=== PATIENT | female | born 2005 | race Caucasian/White ===

== ENCOUNTER 2025-01-13 22:17 | Emergency (ER) | payer OTHER, SELFPAY ==
[2025-01-13 22:22] VITALS: BP 118/79
[2025-01-13 23:36] VITALS: BMI 18.8
--- NOTE | 2025-01-13 23:57 | ED.GENMED ---
History of Present Illness
General
Chief Complaint: Anal/Rectal Problem
Source: patient and family
Exam Limitations: developmental stage
Time Seen by Provider: 01/13/25 23:30
Nursing documentation reviewed up to this point in time: agreed with
History of Present Illness
History of Present Illness:
Patient is a 19-year-old female with developmental delay issues presents for evaluation. father reports patient has had intermittent episodes of constipation issues for the past several weeks. She does report she forces stool at times. She was
using MiraLAX for 4 days however became panicky because it was not working well and stopped using it. She is not using a stool softener. Father reports patient does tend to wipe a lot. When she was wiping she noticed a small amount of bright red
blood on the toilet paper. Father reports stool however was brown in color
she denies any nausea vomiting / abdominal pain and is eating well.
Patient reports where she had a large bowel movement prior to arrival.
Phy Exam
General Physical Exam
General Presentation: no apparent distress
General age: appears stated age
General Skin: warm and dry
General Habitus: normal
General Mental: alert
General Hydration: appears well hydrated
Gastrointestinal Exam
Gastrointestinal Exam: normal bowel sounds, non tender, soft and other (Rectum appears irritated very small abrasion around rectum )
Neurological Exam
Neurological Exam: alert and oriented x3
Musculoskeletal Exam
Musculoskeletal Exam: full ROM
Skin Exam
Skin Exam: normal color and warm/dry
Course
Vital Signs
Initial and Last Documented VS:
Initial Vital Signs
Temp Pulse Resp BP Pulse Ox
98.4 F 82 16 118/79 99
01/13/25 22:22 01/13/25 22:22 01/13/25 22:22 01/13/25 22:22 01/13/25 22:22
Last Documented Vital Signs
Temp Pulse Resp BP Pulse Ox
98.4 F 82 16 118/79 99
01/13/25 22:22 01/13/25 22:22 01/13/25 22:22 01/13/25 22:22 01/13/25 23:58
MDM/Problems Addressed
MDM/Problems Addressed:
Symptoms are consistent with constipation and rectal irritation. Patient has very small little abrasion around the rectum. When I first evaluated patient she was sitting on the toilet continuously wiping her rectal area. She produced a brown
stool. On exam there is no hemorrhoids. Likely intermittent constipation and irritation from frequent wiping (source of small mount of blood on the toilet paper )and straining will DC with continue MiraLAX and stool softener ordered close updated
follow-up with PCP.
*Pulse Oximetry
SaO2: 99
Oxygen Mode of Delivery: Room air
Patient hypoxic: no
*Critical Care Note
Total Time (30-74mins, 75-104mins- exclusive of procedures): Not Applicable
ED Attending Note
-
Portions of this chart may have been created with voice recognition software.� Occasional wrong word or��sound alike� substitutions may have occurred due to the inherent limitations of voice recognition software.
Discharge Plan
Departure
Patient Disposition: Home (Routine Discharge)
Date of Disposition: 01/14/25
Time of Disposition: 00:26
Patient with high blood pressure during this ER visit?: No
Condition: Fair
Covid-19: Not Applicable
Discharge Problem:
Constipation
Instructions: Constipation, Adult (DC)
Prescriptions:
No Action
sertraline [Zoloft] 50 mg Tablet
50 mg PO DAILY
buspirone 10 mg Tablet
10 mg PO BID
sertraline 25 mg Tablet
25 mg PO HS
Referrals:
Nithya Jordan MD [Family Provider, Internal Medicine]
Activity Restrictions/Additional Instructions:
As discussed please continue to use MiraLAX. In addition please use [id number] Colace which is a stool softener.
Increase water intake increase diet high fresh fruits and vegetables. Follow-up with family doctor in the next 1-2 days return if any worsening of symptoms
Interventions
Interventions:
*Risk Screen - Suicide Last Done: 01/13/25 22:22
*General Assessment Last Done: 01/13/25 23:36
*Neglect/Abuse Screening Last Done: 01/13/25 22:22
*ED- Fall Risk Assessment Last Done: 01/13/25 23:36
*ED COVID-19 Vaccine History Last Done: 01/13/25 23:36
CA-Oieitu-Rqgustqufv Assessment Last Done: 01/13/25 23:36
ED-Skin Assessment Last Done: 01/13/25 23:36
Discharge Date and Time
Print Language: FAROESE
== END 2025-01-14 00:40 | disposition home or self-care (01) ==
LOC: EMR 22:17
PROVIDERS: EMERGENCY PHYSICIAN Emergency Medicine; FAMILY PHYSICIAN Emergency Medicine
DX: K59.00 Constipation, unspecified (principal); R62.50 Unspecified lack of expected normal physiological development in childhood
CPT/HCPCS: 99282